=== PATIENT | female | born 1995 | race American Indian/Alaskan Native ===

== ENCOUNTER 2020-09-18 12:07 | Emergency (ER) | payer SELFPAY ==
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
== END 2020-09-18 14:26 | disposition home or self-care (01) ==
LOC: ED 12:07
CPT/HCPCS: 99281